=== PATIENT | female | born 1950 | race African-American/Black ===

== ENCOUNTER 2017-03-31 05:11 | Day surgery (SDC) | payer BC, OTHER ==
[2017-03-23 13:41] VITALS: BMI 26.6
[2017-03-31] MEDS ORDERED: LIDOCAINE HCL/PF 2% SDV 5ML VIAL ONE (07:52)
[2017-03-31] MEDS ORDERED: PROPOFOL 20 ML ONE ×2 (07:52→08:29)
[2017-03-31] MEDS ORDERED: DEXAMETHASONE SOD PHOSPHATE 4 MG/1 ML VIAL ONE (07:52)
[2017-03-31] MEDS ORDERED: MIDAZOLAM HCL 2 MG/2 ML SINGLE DOSE VIAL ONE (07:53)
--- NOTE | 2017-03-31 08:22 | HP ---
History & Physical Update - History History: No Change - Physical Physical: No Change - Assessment Assessment: No Change - Plan Plan: No Change
[2017-03-31] MEDS ORDERED: IBUPROFEN 400 MG TABLET (FP) PO PRN (08:23)
[2017-03-31] MEDS ORDERED: ACETAMINOPHEN 325 MG TABLET (FP) PO PRN (08:23)
--- NOTE | 2017-03-31 08:23 | OP ---
Operative Note - Note: Operative Date: 03/31/17 Pre-Operative Diagnosis: Postmenopausal bleeding. Endometrial polyp Operation: Hysteroscopic myomectomy. Suction DC Post-Operative Diagnosis: Same as Pre-op Surgeon: Caridad Mann Anesthesia: General Estimated Blood Loss (mls): 5 Operative Report Dictated: Yes
[2017-03-31] MEDS ORDERED: ONDANSETRON 4 MG/2 ML VIAL IVPUSH PRN (09:11)
[2017-03-31] MEDS ORDERED: oxyCODONE HCL 5 MG TABLET PO PRN (09:11)
[2017-03-31] MEDS ORDERED: LACTATED RINGERS SOLUTION 1,000 ML IV SCH (09:15)
--- NOTE | 2017-03-31 09:49 | OP ---
DATE OF OPERATION: 03/31/2017 PREOPERATIVE DIAGNOSES: Submucosal myoma, postmenopausal bleeding. POSTOPERATIVE DIAGNOSES: Submucosal myoma, postmenopausal bleeding. SURGEON: Caridad Mann MD ANESTHESIA: General. ANESTHESIOLOGIST: Mushtaq Rodriguez MD FINDINGS: Submucosal myomas and possibly endometrial polyp seen. PROCEDURE: Patient was taken to the operating room and placed in the dorsal lithotomy position, prepped and draped in the usual sterile fashion. Timeout was performed in accordance with hospital regulation. Cervix was then dilated to accommodate the operative hysteroscope. Operative hysteroscope was inserted and a submucosal myoma was seen in the posterior aspect of the uterus as well as the fundal aspect seemed to be endometrial polyp. Hysteroscopic myomectomy was performed. Numerous portions of myoma were seen within the endometrium. Suction D & C was then done and myomas were then removed. All instruments were then removed. Patient tolerated procedure well. Estimated blood loss less than 5 mL. Estefania DE LA CRUZ/[id number]
[2017-03-31 10:15] VITALS: TEMP 98.6
[2017-03-31 11:39] VITALS: BP 149/75; PULSE 72
--- NOTE | 2017-04-01 14:12 | PATH ---
Surgical Pathology Report Patient Name: WALESKA [facility]N [facility]. Rec. #: [id number] /Age/Gender: 1950 (Age: 66) / F Account: [id number] Location: [facility] Taken: 03/31/2017 Received: 03/31/2017 Reported: 04/01/2017 Physicians: Caridad Mann M.D. Specimen(s) Received SUBMUCOSAL MYOMA Clinical History Endometrial polyp, postmenopausal bleeding Final Diagnosis UTERUS, "SUBMUCOSAL MYOMA", SUCTION DILATATION AND CURETTAGE: FRAGMENTS OF ENDOMETRIAL POLYP. Electronically Signed Jyoti Mims M.D. Gross Description Received in formalin labeled "submucosal myoma," is a 1 g, 1.8 x 1.7 x 0.3 cm aggregate of grimes-pink, irregular, firm to rubbery portions of tissue. The formalin is filtered and the specimen is entirely submitted in one cassette. /03/31/2017 saudi03/31/2017
== END 2017-03-31 12:00 | disposition home or self-care (01) ==
LOC: JASU-SURG 05:11
PROVIDERS: ATTEND Obstetrics & Gynecology
PROC: 0UB98ZZ Excision of Uterus, Via Natural or Artificial Opening Endoscopic (ICD-10-PCS; principal; 2017-03-31 08:00)
PROC: 0UDB8ZX Extraction of Endometrium, Via Natural or Artificial Opening Endoscopic, Diagnostic (ICD-10-PCS; 2017-03-31 08:00)
DX: N95.0 Postmenopausal bleeding (principal); D25.0 Submucous leiomyoma of uterus
CPT/HCPCS: 86850; 86900; 86901; 88305-TC; 94760